=== PATIENT | female | born 1980 | race Caucasian/White ===

== ENCOUNTER 2024-02-23 17:30 | Emergency (ER) | payer OTHER ==
[2024-02-23] MEDS: Diphtheria,Pertussis(Acell),Tetanus Vaccine 0.5 ML Syringe IM ONE (18:39)
[2024-02-23] MEDS: Ibuprofen 800 MG Tab PO ONE (18:39)
[2024-02-23] MEDS: Bacitracin Oint 1 GM U/D Packet TOP ONE (18:40)
== END 2024-02-23 19:16 | disposition home or self-care (01) ==
LOC: MW.ED 17:30
DX: T22.212A Burn of second degree of left forearm, initial encounter (principal); T31.0 Burns involving less than 10% of body surface; Z75.8 Other problems related to medical facilities and other health care; Z23 Encounter for immunization
CPT/HCPCS: 16020; 90471; 90715; 99283; A9270